=== PATIENT | male | born 1965 | race Caucasian/White ===

== ENCOUNTER 2020-11-04 17:50 | Emergency (ER) | payer BC, MEDICAID ==
[~2020-11-04] VITALS: Ht 193 cm; Wt 108.9 kg
--- NOTE | 2020-11-04 18:24 | NUR ---
The patient bibs for c/o cough/congestion xcouple days and worse at night. In room air. Denies pain. Will continue to monitor the patient.
--- NOTE | 2020-11-04 18:43 | NUR ---
COVID SWAB DONE AND SENT TO THE LAB
[2020-11-04] MEDS ORDERED: AZIT250T PO (19:22)
[2020-11-04] MEDS ORDERED: IBUP-1957 PO (19:22)
--- NOTE | 2020-11-04 19:47 | NUR ---
Patient discharged to home in stable condition. Written and verbal after care instructions given. Patient verbalizes understanding of instruction.
[2020-11-04 20:11] VITALS: BP 134/76
== END 2020-11-04 19:50 | disposition home or self-care (01) ==
LOC: ER 17:57
DX: J20.9 Acute bronchitis, unspecified (principal); Z20.822 Contact with and (suspected) exposure to COVID-19; F17.210 Nicotine dependence, cigarettes, uncomplicated
CPT/HCPCS: 71045; 87426; 99284; C9803

== ENCOUNTER 2021-04-18 23:30 | Inpatient (IN) | payer MEDICAID ==
[~2021-04-18] VITALS: Ht 193 cm; Wt 109.3 kg
[~2021-04-18 23:30] MED LIST: AZIT250T PO; IBUP-1957 PO
--- NOTE | 2021-04-19 | NUR ---
PT BIBS C/O ABDOMINAL PAIN S/P ASCITES & BLOATING. C/O SOB DUE TO THE PRESSURE -N/V/D. ALICE SWELLING NOTED. PT A/OX4/ TOLERATING R/A WELL WITH NO SOB AT 100%. VSS. CONNECTED PT TO POX AND MONITOR.
[2021-04-19] MEDS ORDERED: IOHEXOL-350 100 ML VIAL IV ONE (00:31)
[2021-04-19] MEDS ORDERED: IV NS 0.9% 0 ML IV ONE (00:31)
--- NOTE | 2021-04-19 00:36 | NUR ---
LAC #20G S/L; PATENT AND INTACT. BLOOD AND COVID ANTIGEN SWAB COLLECTED AND SENT TO LAB
[2021-04-19 00:55] LABS: BASOPHILS % (AUTO) 0.5 % (0.0-2.0); EOSINOPHILS % (AUTO) 0.3 % (0.0-6.0); HEMATOCRIT 24 % (39-51); HEMOGLOBIN 7.5 g/dL (13.5-17.5); LYMPHOCYTES # (AUTO) 1.2 K/uL (0.8-4.8); LYMPHOCYTES % (AUTO) 14.9 % (20.0-44.0); MEAN CORPUSCULAR HGB CONC 31 g/dl (31.0-36.0); MEAN CORPUSCULAR VOLUME 62 fL (80-96); MONOCYTES # (AUTO) 0.6 K/uL (0.1-1.30); MONOCYTES % (AUTO) 7.5 % (2.0-12.0); NEUTROPHILS # (AUTO) 6.2 K/uL (1.8-8.9); NEUTROPHILS % (AUTO) 76.8 % (43.0-81.0); PLATELET COUNT (AUTO) 526 K/uL (150-450); RED BLOOD CELL COUNT(AUTO) 3.92 MIL/uL (4.5-6.0); WHITE BLOOD COUNT (AUTO) 8.1 K/uL (4.3-11.0)
--- NOTE | 2021-04-19 01:00 | NUR ---
URINE COLLECTED AND SENT TO LAB
[2021-04-19 01:14] LABS: CALCIUM, SERUM 9.2 mg/dL (8.5-10.1); CARBON DIOXIDE 27 mmol/L (21-32); CHLORIDE 100 mmol/L (98-107); CREATININE 0.9 mg/dL (0.6-1.3); GLUCOSE 89 mg/dL (74-106); POTASSIUM 3.8 mmol/L (3.5-5.1); SODIUM SERUM 135 mmol/L (136-145); UREA NITROGEN, BLOOD 20 mg/dL (7-18)
[2021-04-19 01:26] LABS: ALBUMIN 1.9 g/dL (3.4-5.0); ALKALINE PHOSPHATASE 103 U/L (46-116); ASPARTATE AMINOTRANSFERASE 14 U/L (15-37); BILIRUBIN,DIRECT 0.3 mg/dL (0.0-0.2); BILIRUBIN,TOTAL 0.8 mg/dL (0.2-1.0); LIPASE 77 U/L (73-393); TOTAL PROTEIN, SERUM 6.6 g/dL (6.4-8.2)
--- NOTE | 2021-04-19 01:28 | NUR ---
LACTIC ACID 2.2; FABIAN ESCOBAR NOTIFIED
--- NOTE | 2021-04-19 01:34 | NUR ---
PT DENIED TAKING ANY HOME MEDICATION EXCEPT PRN MOTRIN
[2021-04-19 01:38] LABS: ALANINE AMINOTRANSFERASE 6 U/L (12-78)
[2021-04-19 01:42] LABS: BILIRUBIN,URINE MODERATE (NEGATIVE); COLOR,URINE AMBER (YELLOW); LEUKOCYTE ESTERASE ,URINE NEGATIVE (NEGATIVE); NITRITE, URINE POSITIVE (NEGATIVE); PROTEIN,URINE TRACE mg/dl (NEGATIVE); UGLUCOSE NEGATIVE (NEGATIVE); UROBILINOGEN,URINE 0.2 EU/dL (0.2)
--- NOTE | 2021-04-19 02:06 | NUR ---
LAC #20G S/L INFILTRATED AT CT. INSERTED RFA #18G S/L; PATENT AND INTACT.
--- NOTE | 2021-04-19 02:20 | NUR ---
Terrell dang in [facility] - 04/19/21 at [address] PERALTA ON THE PHONE WITH DEXTER CUETO
--- NOTE | 2021-04-19 04:29 | NUR ---
DR PERALTA ON THE PHONE WITH DR GARCÍA
--- NOTE | 2021-04-19 04:39 | NUR ---
DR PERALTA ON THE PHONE W/ Jodi ACUÑA. GENERAL SURGEON
--- NOTE | 2021-04-19 05:32 | NUR ---
MRSA SWAB COLLECTED AND SENT TO LAB. PATIENT'S BELONGINGS LIST DONE.
[2021-04-19] MEDS ORDERED: ZOLPIDEM TARTRATE 5 MG TABLET PO PRN (06:00)
[2021-04-19] MEDS ORDERED: ACETAMINOPHEN 650 MG/20.3 ML UDC NG PRN (06:00)
[2021-04-19] MEDS ORDERED: IV D5/ 0.9% NACL 1,000 ML IV PRN (06:00)
--- NOTE | 2021-04-19 06:21 | NUR ---
PT WALKED TO RESTROOM, NEEDS MET
--- NOTE | 2021-04-19 06:44 | NUR ---
Terrell dang in ED - 04/19/21 at 0716 by HAIM PT SIGNED CONSENT FOR US GUIDED THORACENTESIS; VERBALIZED UNDERSTANDINGS OF RISKS VS BENEFITS
--- NOTE | 2021-04-19 06:44 | NUR ---
PT SIGNED CONSENT FOR US GUIDED PARACENTESIS; VERBALIZED UNDERSTANDINGS OF RISKS VS BENEFITS
[2021-04-19 07:31] LABS: BASOPHILS % (AUTO) 0.7 % (0.0-2.0); EOSINOPHILS % (AUTO) 0.7 % (0.0-6.0); HEMATOCRIT 22 % (39-51); LYMPHOCYTES # (AUTO) 1.2 K/uL (0.8-4.8); LYMPHOCYTES % (AUTO) 16.5 % (20.0-44.0); MEAN CORPUSCULAR HGB CONC 31 g/dl (31.0-36.0); MEAN CORPUSCULAR VOLUME 63 fL (80-96); MONOCYTES # (AUTO) 0.6 K/uL (0.1-1.30); NEUTROPHILS # (AUTO) 5.4 K/uL (1.8-8.9); NEUTROPHILS % (AUTO) 74.1 % (43.0-81.0); PLATELET COUNT (AUTO) 471 K/uL (150-450); RED BLOOD CELL COUNT(AUTO) 3.56 MIL/uL (4.5-6.0); WHITE BLOOD COUNT (AUTO) 7.2 K/uL (4.3-11.0)
[2021-04-19 07:45] LABS: HEMOGLOBIN 6.9 g/dL (13.5-17.5)
[2021-04-19 08:05] LABS: ALANINE AMINOTRANSFERASE < 6 U/L (12-78); ALBUMIN 1.7 g/dL (3.4-5.0); ALKALINE PHOSPHATASE 90 U/L (46-116); ASPARTATE AMINOTRANSFERASE 14 U/L (15-37); BILIRUBIN,TOTAL 0.6 mg/dL (0.2-1.0); CARBON DIOXIDE 25 mmol/L (21-32); CHLORIDE 101 mmol/L (98-107); CREATININE 0.8 mg/dL (0.6-1.3); GLUCOSE 81 mg/dL (74-106); POTASSIUM 3.8 mmol/L (3.5-5.1); SODIUM SERUM 136 mmol/L (136-145); TOTAL PROTEIN, SERUM 6.1 g/dL (6.4-8.2); UREA NITROGEN, BLOOD 19 mg/dL (7-18)
[2021-04-19] MEDS ORDERED: HYDR-3972 PO (08:24)
[2021-04-19] MEDS ORDERED: IBUP-1957 PO (08:24)
--- NOTE | 2021-04-19 09:41 | NUR ---
ULTRASOUND AT BEDSIDE
--- NOTE | 2021-04-19 10:46 | NUR ---
DR GARCÍA WAS INFORMED PT HEMOGLOBIN IS 6.9, PREVIOUSLY 7.[address] GARCÍA ORDERED 2 UNITS OF BLOOD TO BE GIVEN.
--- NOTE | 2021-04-19 12:41 | NUR ---
CONSENT FOR BLOOD TRANFUSION SIGNED BY PATIENT
[2021-04-19 12:46] LABS: IRON, SERUM 13 ug/dl (50-175); TOTAL IRON BINDING CAPACITY 199 ug/dl (250-450)
[2021-04-19 14:07] LABS: BAND % (MANUAL) 2 % (0.0-5.0); NEUTROPHILS % (MANUAL) 82 (42-76)
[2021-04-19 14:08] LABS: LYMPHOCYTES % (MANUAL) 10 % (16-48); MONOCYTES % (MANUAL) 4 % (0-11.0)
--- NOTE | 2021-04-19 14:50 | NUR ---
AMANUEL (FORMER ROOMATE) [phone].
[2021-04-19 15:16] LABS: BACTERIA,URINE Many /HPF (None Seen); CALCIUM OXALATE CRYSTALS,UR Moderate /HPF (None Seen); SQUAMOUS EPITHELIAL CELL,UR Moderate /HPF (None Seen)
--- NOTE | 2021-04-19 17:01 | NUR ---
ULTRASOUND AT BEDSIDE
[2021-04-19] MEDS: SOD FERRIC GLUC 125 MG in IV NS 0.9% 100 ML IV SCH (17:10)
[2021-04-19] MEDS ORDERED: IV NS 0.9% 250 ML IV ONE (17:43)
[2021-04-19] MEDS ORDERED: IOHEXOL-300 100 ML VIAL IV ONE (17:43)
[2021-04-19] MEDS ORDERED: CT SWABBABLE VALVE TRANS SET 1 EA INFUS.SET MC ONE (17:43)
--- NOTE | 2021-04-19 18:07 | NUR ---
Terrell dang in [facility] - 04/19/21 at 1809 by LISBETH PT TAKEN TO CT
--- NOTE | 2021-04-19 18:45 | NUR ---
BED GIVEN 320-1 AFTER CHANGE OF SHIFT
--- NOTE | 2021-04-19 19:55 | NUR ---
BLOOD TRANSFUSION INITIATED AT 75ML/HR VIA 18G LF. 2 RNs VERIFIED BLOOD PRIOR TO TRANSFUSION. V/S ASSESSED PRIOR TO ADMINSTRATION HR 90 BP 119/72 RR18 ORAL TEMP 97.5.
--- NOTE | 2021-04-19 20:10 | NUR ---
PT TOLERATING BLOOD TRANSFUSION WELL. ALL V/S REASSESSED AND WITHIN NORMAL LIMITS. PT DENIES ANY COMPLAINTAS. TRANSFUSION RATE INCREASED TO 100ML/HR VIA 18G LF.
--- NOTE | 2021-04-19 20:32 | NUR ---
REPORT GIVEN TO NARESH
--- NOTE | 2021-04-19 20:40 | NUR ---
PT TOLERATING TRANSFUSION WELL INFUSING AT 100ML/HR. ALL V/S STABLE. PT DENIES ANY COMPLAINTS AT THIS TIME.
[2021-04-19 21:00] VITALS: BP 121/81
--- NOTE | 2021-04-19 21:06 | NUR ---
PT TRANSPORTED TO ROOM 320 ON [employer] WITHOUT INCIDENT WITH BLOOD TRANSFUSION INFUSING AT 100ML/ HR VIA 18G LF AND D5NS AT 75ML/HR VIA 20G LAC. ALL BELONGINGS TRANSPORTED WITH PATIENT.
--- NOTE | 2021-04-19 21:25 | NUR ---
MS MITZY NOTES PT ARRIVED FROM ER ACCOMPANIED BY RN AND EMT NOTED PT RUNNING BLOOD TRANSFUSION @ 100ML/HR , AND D5 NS @ 75ML/HR TOLERATING WELL. VITAL SIGNS STABLE. PT ABLE TO WALK TO BED WITH ASSISTANCE NOTED WITH STEADY GAIT. IV ACCESS ON THE L FOREARM 18G AND L AC 20G BOTH INTACT RUINING WELL. PT REFUSING SKIN ASSESSMENT DOES NOT WANT OT REMOVE CLOTHES AT THIS TIME RISK AND BENEFITS EXPLAINEDX3 REFUSED X3. PT STATED " I WANT TO KEEP MY CLOTHES ON " PT S/P PARACENTESIS WITH 7L OUTPUT TODAY IN THE ER. PT ON 2L OF OXYGEN TOLERATING WELL. PT COLD WARM BLANKETS PROVIDED. CALL LIGHT PLACED WITHIN REACH. TABLE WITHIN REACH. WILL CONTINUE TO MONITOR. Addendum: 04/20/21 at 0311 by NARESH WAYNE RN PT NOT ON 02 ON ROOM AIR TOLERATING WELL.
--- NOTE | 2021-04-19 22:17 | NUR ---
MS RN NOTES BLOOD TRANSFUSION FINISHED AT THIS TIME. PT VITALS 110/65 HR HR 85 RR 18 TEMPERATURE 98.0 OZ SAT 95 %. WILL CONTINUE TO MONITOR.
--- NOTE | 2021-04-19 22:42 | NUR ---
MS RN NOTES ATTEMPTED TO RETRIEVE SECOND UNIT OF BLOOD FROM LAB UNABLE TO THERE IS NO ONE WHO CAN ISSUE IT WILL HAVE TO WAIT UNTIL MORNING .
--- NOTE | 2021-04-19 23:00 | NUR ---
MS RN NOTES GOT A CALL FROM LAB THAT THEY HAVE SOMEONE THAT COULD GIVE ME THE BLOOD PICKED UP THE BLOOD. WILL CONTINUE TO MONITOR.
[2021-04-19 23:22] VITALS: BP 115/65
[2021-04-19 23:39] VITALS: BP 127/68
[2021-04-20 00:09] VITALS: BP 121/75
[2021-04-20 00:39] VITALS: BP 115/65
--- NOTE | 2021-04-20 01:45 | NUR ---
MS RN NOTES BLOOD TRANSFUSION FINISHED LAS SET OF VITALS ARE FOLLOW: 110/ 65 , HR 85, 98% O2 SAT NO FEVER, NO SIGNS AND SYMPTOMS OF REACTION TO TRANSFUSION. WILL CONTINUE TO MONITOR.
[2021-04-20] MEDS: HYDROCODONE/APAP 5/325MG TABLET PO PRN (02:26)
--- NOTE | 2021-04-20 02:28 | NUR ---
MS RN NOTES PRN NORCO GIVEN TOLERATED WELL. WILL CONTINUE TO MONITOR.
[2021-04-20] MEDS ORDERED: MAG HYDROX/AL HYDROX/SIMETH 30 ML UDC PO ONE (03:30)
--- NOTE | 2021-04-20 06:34 | NUR ---
MS RN NOTES PT A/O X4 ON ROOM AIR TOLERATING WELL. NO PAIN OR DISCOMFORT AT THIS TIME. IV ACCESS ON THE L FOREARM 18G AND LAC 20G BOTH INTACT RUNNING D5 NS @ 75 ML/HR. PT REFUSING SKIN ASSESSMENT DOES NOT WANT TO REMOVE CLOTHES AT THIS TIME RISK AND BENEFITS EXPLAINEDX3 REFUSED X3. PT STATED " I WANT TO KEEP MY CLOTHES ON " PT S/P PARACENTESIS WITH 7L OUTPUT YESTERDAY CONSENT FOR CT W CONTRAST OBTAINED AND PLACED IN THE CHART. ALL NEEDS ATTENDED TO THROUGHOUT THE SHIFT CALL LIGHT PLACED WITHIN REACH. TABLE WITHIN REACH. WILL CONTINUE TO MONITOR.
[2021-04-20 07:01] LABS: CREATININE 0.7 mg/dL (0.6-1.3); POTASSIUM 3.4 mmol/L (3.5-5.1)
--- NOTE | 2021-04-20 07:44 | NUR ---
MS RN OPENING NOTES RECEIVED Pt RESTING IN BED. Pt IS A/O x4. Pt IS ON ROOM AIR AND TOLERATING WELL AT THIS TIME. NO COMPLAINTS OF PAIN OR SIGNS OF DISTRESS NOTICED. IV ACCESS ON L AC AND L FA AND BOTH ARE PATENT AND INTACT. SAFETY MEASURES ARE IN PLACE: BED IS LOCKED AND IN LOWEST POSITION. SIDE RAILS UPx2. BED SIDE TABLE AND CALL LIGHT ARE WITHIN REACH. WILL CONTINUE TO MONITOR THROUGHOUT THE SHIFT.
[2021-04-20 07:49] LABS: BASOPHILS % (AUTO) 0.5 % (0.0-2.0); EOSINOPHILS % (AUTO) 0.7 % (0.0-6.0); HEMATOCRIT 26 % (39-51); HEMOGLOBIN 8.2 g/dL (13.5-17.5); LYMPHOCYTES # (AUTO) 1.2 K/uL (0.8-4.8); LYMPHOCYTES % (AUTO) 16.6 % (20.0-44.0); MEAN CORPUSCULAR HGB CONC 31 g/dl (31.0-36.0); MEAN CORPUSCULAR VOLUME 65 fL (80-96); MONOCYTES # (AUTO) 0.6 K/uL (0.1-1.30); MONOCYTES % (AUTO) 7.7 % (2.0-12.0); NEUTROPHILS # (AUTO) 5.4 K/uL (1.8-8.9); NEUTROPHILS % (AUTO) 74.5 % (43.0-81.0); PLATELET COUNT (AUTO) 489 K/uL (150-450); RED BLOOD CELL COUNT(AUTO) 4.03 MIL/uL (4.5-6.0); WHITE BLOOD COUNT (AUTO) 7.3 K/uL (4.3-11.0)
[2021-04-20 08:06] LABS: IMMUNOGLOBULIN A, SERUM 441 mg/dL (90-386); IMMUNOGLOBULIN G, SERUM 1315 mg/dL (603-1613); IMMUNOGLOBULIN M, SERUM 71 mg/dL (20-172)
[2021-04-20] MEDS ORDERED: POTASSIUM CHLORIDE 20 MEQ TAB.PRT.SR PO SCH (09:30)
[2021-04-20 11:07] LABS: *SPE A/G RATIO 0.5 (0.7-1.7); *SPE ALPHA-1-GLOBULIN 0.5 g/dL (0.0-0.4); *SPE M-SPIKE Not Observed g/dL (Not Observed)
[2021-04-20] MEDS ORDERED: POTASSIUM CHLORIDE 20 MEQ TAB.PRT.SR PO ONE (11:30)
[2021-04-20] MEDS ORDERED: LEVO500T90 PO (11:46)
[2021-04-20] MEDS ORDERED: FERR325T23 PO (11:46)
[2021-04-20] MEDS: LEVOFLOXACIN (250MG) 250 MG TABLET PO SCH (11:55)
--- NOTE | 2021-04-20 11:56 | NUR ---
MS RN NOTES BLOOD TRANSFUSION STARTED ON Pt. Pt TOLERATING WELL AT THIS TIME. WILL CONTINUE TO MONITOR.
[2021-04-20 12:57] VITALS: BP 114/60
[2021-04-20] MEDS ORDERED: IOHEXOL-300 100 ML VIAL IV ONE (14:04)
[2021-04-20] MEDS ORDERED: IV NS 0.9% 250 ML IV ONE (14:04)
[2021-04-20] MEDS ORDERED: CT SWABBABLE VALVE TRANS SET 1 EA INFUS.SET MC ONE (14:04)
[2021-04-20] MEDS: SOD FERRIC GLUC 125 MG in IV NS 0.9% 100 ML IV SCH (15:23)
[2021-04-20] MEDS: ONDANSETRON HCL/PF 4 MG/2 ML VIAL IV PRN ×2 (16:51→21:48)
[2021-04-20 17:47] VITALS: BP 116/59
--- NOTE | 2021-04-20 18:36 | NUR ---
MS RN CLOSING NOTES Pt IS LYING IN BED AWAKE, HE IS A/O X4 ON ROOM AIR TOLERATING WELL. NO PAIN OR DISCOMFORT AT THIS TIME. IV ACCESS ON THE L FOREARM 18G AND L AC 20G BOTH INTACT AND PATENT AT THIS TIME. ALL NEEDS MET. SAFETY MEASURES ARE IN PLACE: BED IS LOCKED AND IN LOWEST POSITION. SIDE RAILS UPx2. CALL LIGHT AND BED SIDE TABLE ARE WITHIN Pt's REACH. WILL ENDORSE TO ONCOMING SHIFT
--- NOTE | 2021-04-20 19:23 | NUR ---
MS RN NOTES Pt NO LONGER DISCHARGED DUE TO MRI SCHEDULED.
[2021-04-20 20:00] VITALS: BP 114/72
[2021-04-20] MEDS: MORPHINE SULFATE INJ 2 MG/ML DISP.SYRIN IV PRN (21:48)
[2021-04-21] MEDS: ONDANSETRON HCL/PF 4 MG/2 ML VIAL IV PRN ×2 (02:20→23:48)
[2021-04-21] MEDS: MORPHINE SULFATE INJ 2 MG/ML DISP.SYRIN IV PRN ×4 (02:20→23:46)
--- NOTE | 2021-04-21 06:34 | NUR ---
MS RN NOTES AWAKE & RESPONSIVE. NOT IN ANY DISTRESS. NO SOB NOTED. DENIES ANY PAIN OR DISCOMFORT AT THIS TIME. WITH IV-HL PATENT & INTACT. MONITORED ACCORDINGLY. CALL LIGHT WITHIN REACH. BED IN LOWEST POSITION. SR UP X 2 FOR SAFETY. WILL ENDORSE TO NEXT SHIFT.
[2021-04-21 07:09] LABS: CALCIUM, SERUM 7.1 mg/dL (8.5-10.1); CREATININE 0.7 mg/dL (0.6-1.3); POTASSIUM 3.8 mmol/L (3.5-5.1)
[2021-04-21] MEDS: LEVOFLOXACIN (250MG) 250 MG TABLET PO SCH (12:43)
[2021-04-21] MEDS: HYDROCODONE/APAP 5/325MG TABLET PO PRN (13:39)
[2021-04-21] MEDS: SOD FERRIC GLUC 125 MG in IV NS 0.9% 100 ML IV SCH (14:37)
--- NOTE | 2021-04-21 19:07 | NUR ---
MS RN NOTES Pt HAS BEEN DISCHARGED. HE IS A/Ox4 Pt IS ON ROOM AIR AND TOLERATING WELL AT THIS TIME. NO COMPLAINTS OF PAIN OR SIGNS OF DISTRESS. IV ACCESS HAVE BEEN REMOVED. Pt LEFT VIA AMBULANCE.
[2021-04-21 20:00] VITALS: BP 107/63
[2021-04-21] MEDS: MUPIROCIN OINT 2% 22 GM TUBE NS SCH (20:45)
--- NOTE | 2021-04-22 04:28 | NUR ---
CLOSING NOTES: PATIENT WAS DISCHARGED TO [facility] HERE @ 1900 STATED PATIENT "TOO BIG" FOR THEIR GUERNY, THAT WE NEED TO CALL FOR TRANSPORT AGAIN AND ASK FOR THE LARGER TRANSPORTING. THIS WAS DONE BY THE CHARGE NURSE ARIANA [facility]STER [facility] [employer] ARRANGMENT ARE MADE FOR 04/22 AT 12:30 IV RESTRTED 22 G RT HAND D/T HE STATED HE NEED HIS MORPHINE BECAUSE HE COULD NOT GET THRU THE NIGHT W/O IT. ZOFRAN GIVEN 1 X FOR NAUES AND EFFECTIVE HE IS ALERT AND ORIENTATED X3 AMBULANTES INDEPENDENTLY STEADY ON HIS LEGS
[2021-04-22] MEDS: MORPHINE SULFATE INJ 2 MG/ML DISP.SYRIN IV PRN ×2 (08:04→15:51)
--- NOTE | 2021-04-22 08:17 | NUR ---
MS RN OPENING NOTE Patient in bed, awake. A/O x 4, able to make needs known. On room air, breathing evenly and unlabored. No SOB or s/s of distress noted. IV access on Right hand #22G, intact and patent. Patient complained of pain on his abdomen 8/10, PRN Morphine given. Safety precautions in place: bed in low, locked position; siderails up x 2; call light within reach. Will continue to monitor.
[2021-04-22 08:31] VITALS: BP 108/70
[2021-04-22] MEDS: MUPIROCIN OINT 2% 22 GM TUBE NS SCH (09:36)
--- NOTE | 2021-04-22 10:55 | NUR ---
RN NOTE Patient refused to be picked up by ambulance to go to facility. Diego, charge nurse, aware.
[2021-04-22] MEDS: HYDROCODONE/APAP 5/325MG TABLET PO PRN ×2 (10:59→19:55)
[2021-04-22] MEDS: LEVOFLOXACIN (250MG) 250 MG TABLET PO SCH (12:50)
[2021-04-22] MEDS: SOD FERRIC GLUC 125 MG in IV NS 0.9% 100 ML IV SCH (14:53)
[2021-04-22 16:03] VITALS: BP 98/59
--- NOTE | 2021-04-22 19:10 | NUR ---
MS RN CLOSING NOTE Patient in bed, awake. A/O x 4, able to make needs known. Stable on room air, breathing evenly and unlabored. No SOB or s/s of distress noted. IV access on Right hand #22G, intact and patent. Pain meds given when needed. Due meds given. all needs attended to. Safety precautions in place: bed in low, locked position; siderails up x 2; call light within reach. Will endorse to foot and ankle surgeon nurse for [facility].
--- NOTE | 2021-04-22 19:45 | NUR ---
MS RN OPENING AND DISCHARGE NOTE: RECEIVED REPORT AT PATIENT'S BEDSIDE. PATIENT IS A&OX4, IN NAD AND VSS, SITTING UP AT EOB. COMMUNICATIVE AND VERBALIZING NEEDS EFFECTIVELY. SHORTLY AFTER RECEIVING REPORT, EMS ARRIVED TO FRONT END APPLICATION DEVELOPER PATIENT FOR TRANSPORT TO [facility]. PATIENT GIVEN NORCO 5/325MG PER MD PRN ORDER FOR C/O ABDOMINAL PAIN. REINFORCED TEACHING R/T DISCHARGE INSTRUCTION. PATIENT VERBALIZES UNDERSTANDING. DISCHARGE AND INVENTORY PAPERS SIGNED AND COPY SENT WITH PATIENT. IV D/C'D WITH CATHETER TIP INTACT. NO S/SX OF ERYTHEMA/INFECTION TO OR SURROUNDING INSERTION SITE. PATIENT AMBULATED TO [facility] WITHOUT COMPLICATION/STABLE GAIT. SAFETY PRECAUTIONS MAINTAINED. REPORTED OFF TO EMS. @2049 REPORT [facility]
== END 2021-04-22 20:00 | DRG 381 ==
LOC: ER 23:42 → TRANSITION 04-19 04:44 → MED 04-19 20:16
PROVIDERS: ADMIT Internal Medicine; ATTEND Internal Medicine
PROC: 0W9G3ZZ Drainage of Peritoneal Cavity, Percutaneous Approach (ICD-10-PCS; principal; 2021-04-19)
PROC: 30233N1 Transfusion of Nonautologous Red Blood Cells into Peripheral Vein, Percutaneous Approach (ICD-10-PCS; 2021-04-19)
DX: C43.9 Malignant melanoma of skin, unspecified (principal); K55.029 Acute infarction of small intestine, extent unspecified; R18.0 Malignant ascites; C78.02 Secondary malignant neoplasm of left lung; C78.5 Secondary malignant neoplasm of large intestine and rectum; E87.2 Acidosis; E88.09 Other disorders of plasma-protein metabolism, not elsewhere classified; D50.9 Iron deficiency anemia, unspecified; F17.200 Nicotine dependence, unspecified, uncomplicated; K40.20 Bilateral inguinal hernia, without obstruction or gangrene, not specified as recurrent; E27.9 Disorder of adrenal gland, unspecified; K80.20 Calculus of gallbladder without cholecystitis without obstruction; Z20.822 Contact with and (suspected) exposure to COVID-19; Z98.890 Other specified postprocedural states; H53.40 Unspecified visual field defects; N50.89 Other specified disorders of the male genital organs; Z87.19 Personal history of other diseases of the digestive system; J98.11 Atelectasis; K76.9 Liver disease, unspecified; N28.9 Disorder of kidney and ureter, unspecified; Z85.72 Personal history of non-Hodgkin lymphomas; D32.0 Benign neoplasm of cerebral meninges
CPT/HCPCS: 36415; 70470-TC; 70542-TC; 71045-TC; 76942-TC; 80048-TC; 80053-TC; 80076-TC; 81001; 82728-TC; 82784; 83540-TC; 83605-TC; 83690-TC; 84155; 84165; 84439-TC; 84443-TC; 84484-TC; 85025-TC; 85730-TC; 86334; 86850-TC; 87040-TC; 87070-TC; 87081-TC; 87086-TC; 89051-TC; 93970-TC; C9803; G0378; J2270; J2405; J2916; J3490; J7030; J7042; J7050; J7070; P9016; Q9967

== ENCOUNTER 2021-04-26 16:43 | Inpatient (IN) | payer MEDICAID ==
[~2021-04-26] VITALS: Ht 193 cm; Wt 110.2 kg
[~2021-04-26 16:43] MED LIST changes: -AZIT250T PO; +FERR325T23 PO; +HYDR-3972 PO; +LEVO500T90 PO
--- NOTE | 2021-04-26 17:01 | NUR ---
PT SELF PRESENTS TO ER, AMBULATORY TO ED BED 13 C/O ABDOMINAL DISTENSION FOR THE PAST 3 DAYS. PT STATES HE LAST HAD PARACENTESIS LAST SATURDAY. GOWNED AND PLACED ON MONITOR. VSS AWAITING MD CERRATO.
--- NOTE | 2021-04-26 17:13 | NUR ---
DR MEJIA AT BEDSIDE FOR EVAL.
--- NOTE | 2021-04-26 17:38 | NUR ---
MOVE SHEET SUBMITTED
--- NOTE | 2021-04-26 17:44 | NUR ---
IV LINE STARTED BLOOD DRAWN AND SENT TO LAB.
[2021-04-26 18:10] LABS: BASOPHILS % (AUTO) 0.2 % (0.0-2.0); EOSINOPHILS % (AUTO) 0.7 % (0.0-6.0); HEMATOCRIT 26 % (39-51); HEMOGLOBIN 8.2 g/dL (13.5-17.5); MEAN CORPUSCULAR HGB CONC 31 g/dl (31.0-36.0); MEAN CORPUSCULAR VOLUME 65 fL (80-96); MONOCYTES # (AUTO) 0.6 K/uL (0.1-1.30); MONOCYTES % (AUTO) 8.9 % (2.0-12.0); NEUTROPHILS # (AUTO) 5.5 K/uL (1.8-8.9); NEUTROPHILS % (AUTO) 76.2 % (43.0-81.0); PLATELET COUNT (AUTO) 560 K/uL (150-450); RED BLOOD CELL COUNT(AUTO) 4.05 MIL/uL (4.5-6.0); WHITE BLOOD COUNT (AUTO) 7.2 K/uL (4.3-11.0)
[2021-04-26 18:43] LABS: BILIRUBIN,DIRECT 0.2 mg/dL (0.0-0.2); BILIRUBIN,TOTAL 0.3 mg/dL (0.2-1.0); CALCIUM, SERUM 8.1 mg/dL (8.5-10.1); CREATININE 1.6 mg/dL (0.6-1.3); POTASSIUM 4.3 mmol/L (3.5-5.1); TOTAL PROTEIN, SERUM 5.4 g/dL (6.4-8.2)
[2021-04-26 18:46] LABS: ALBUMIN 1.4 g/dL (3.4-5.0)
[2021-04-26] MEDS ORDERED: BISA10SU11 RC (18:49)
[2021-04-26] MEDS ORDERED: FURO-145 PO (18:49)
[2021-04-26] MEDS ORDERED: FERR325T23 PO (18:49)
[2021-04-26] MEDS ORDERED: NA P133E RC (18:49)
[2021-04-26] MEDS ORDERED: MAGN400O6 PO (18:49)
[2021-04-26] MEDS ORDERED: PANT40TA2 PO (18:49)
--- NOTE | 2021-04-26 21:09 | NUR ---
CALL FROM ROSA M RENTERIA CM. PLANNING FOR TRANSFER TO [facility].
--- NOTE | 2021-04-27 | NUR ---
PATIENT RESTING IN BED WATCHING TV. PATIENT VSS AT THIS TIME. NO ACUTE DISTRESS NOTED. PATIENT CONNECTED TO CARDIAC AND POX MONITORS. PT LFA 20G IV INTACT FLUSHING WELL. SITTER AT BEDSIDE. WILL CONTINUE TO MONITOR.
--- NOTE | 2021-04-27 10:37 | NUR ---
CALL BACK FROM COLIN BECKER,SHE WILL F/U ON TX
--- NOTE | 2021-04-27 15:48 | NUR ---
CALLED [phone] СВЕТЛАНА RENTERIA CM. LEFT A VOICEMAIL, WAITING FOR CALLBACK.
--- NOTE | 2021-04-27 15:53 | NUR ---
SPOKE TO СВЕТЛАНА. (DEXTER SHAW) SHE IS CURRENTLY WAITING FOR A BED AT [facility]. SHE IS ALSO TRYING [facility]. WAITING FOR A CALL BACK FOR STATUS UPDATE.
--- NOTE | 2021-04-28 07:42 | NUR ---
CALLED [facility] [phone] WILL CALL US ABOUT [place]
--- NOTE | 2021-04-28 08:02 | NUR ---
GOT AUTH [id number] IF WOULD LIKE TO ADMIT, STILL LOOKING FOR BED AT [facility].
--- NOTE | 2021-04-28 08:06 | NUR ---
DR. GARCÍA SPEAKING WITH DR. MARTINEZ
--- NOTE | 2021-04-28 08:14 | NUR ---
CALLED FOR BED.
--- NOTE | 2021-04-28 08:56 | NUR ---
BED GIVEN 314-1
--- NOTE | 2021-04-28 09:08 | NUR ---
REPORT GIVEN TO RAFA RN, ROOM 314-1
--- NOTE | 2021-04-28 09:22 | NUR ---
ULTRASOUND GUIDED PARACENTESIS ONGOING AT BEDSIDE
--- NOTE | 2021-04-28 10:01 | NUR ---
PARACENTESIS OUTPUT 6LITERS, TOLERATED WELL
--- NOTE | 2021-04-28 10:20 | NUR ---
MS PRODUCT ARCHITECT NOTES RECEIVED PATIENT FROM ER STATUS POST PARACENTESIS VIA STRETCHER. PATIENT IS AWAKE AND A/O X4. ON ROOM AIR TOLERATING WELL. NO SOB NOTED. NOT IN DISTRESS. WITH IV ACCESS AT LEFT HAND G20 AND AT LEFT AC G20 SALINE LOCKED, PATENT AND INTACT. MADE COMFORTABLE ON BWED. WITH NO COMPLAINTS OF PAIN OR DISCOMFORT AT THIS TIME. PATIENT REFUSED FOR SKIN ASSESSMENT. SAFETY MEASURES IN PLACED. CALL LIGHT WITHIN REACH. BED ON LOWEST LOCKED POSITION, SIDE RAILS UP X2. WILL CONTINUE TO MONITOR.
[2021-04-28 11:34] VITALS: BP 104/62
[2021-04-28] MEDS ORDERED: HYDROCODONE/APAP 5/325MG TABLET PO PRN (13:00)
[2021-04-28] MEDS ORDERED: IBUPROFEN 400 MG TABLET PO PRN (13:00)
[2021-04-28] MEDS ORDERED: BISACODYL SUPP (10 MG) 10 MG/SUPP.RECT SUPP.RECT RC PRN (13:00)
[2021-04-28] MEDS ORDERED: MAGNESIUM HYDROXIDE 30 ML UDC PO PRN (13:00)
[2021-04-28] MEDS ORDERED: NA PHOS,M-B/NA PHOS,DI-BA 1 EA ENEMA RC PRN (13:00)
--- NOTE | 2021-04-28 14:20 | NUR ---
MS QUAL RESEARCH MANAGER NOTES PATIENT WAS SEEN BY DR. GARCÍA AND ORDERED PATIENT FOR DISCHARGE TO HIS PREVIOUS SNF PER PATIENT'S REQUEST. PATIENT HAS AN APPOINTMENT FOR ONCO CHECK-UP SCHEDULED AT 1430. DISCHARGE INSTRUCTION AND EDUCATION PROVIDED TO PATIENT AND EXPLAINED MEDICATIONS AND PRESCRIPTIONS. PATIENT VERBALIZED UNDERSTANDING. DISCHARGE FORM AND BELONGINGS LIST FORM SIGNED BY PATIENT. ALL BELONGINGS ACCOUNTED FOR. NAME WRIST BAND AND IV LINE REMOVED. ACCOMPANIED PATIENT TO THE LOBBY VIA WHEELCHAIR AND LEFT IN STABLE CONDITION VIA UBER. MD AND CHARGE NURSE ARE AWARE OF THE DISCHARGE.
[2021-04-28] MEDS ORDERED: FERROUS SULFATE (325 MG) 325 MG/TAB TABLET PO SCH (17:00)
[2021-04-29] MEDS ORDERED: PANTOPRAZOLE 40 MG TABLET.DR PO SCH (07:30)
== END 2021-04-28 15:44 | DRG 381 ==
LOC: ER 16:45 → UNDOADMIN 04-27 19:40 → TRANSITION 04-27 19:40 → MED 04-28 09:01
PROVIDERS: ADMIT Internal Medicine; ATTEND Internal Medicine
PROC: 0W9G3ZZ Drainage of Peritoneal Cavity, Percutaneous Approach (ICD-10-PCS; principal; 2021-04-28)
DX: C43.59 Malignant melanoma of other part of trunk (principal); R18.0 Malignant ascites; C79.9 Secondary malignant neoplasm of unspecified site; E88.09 Other disorders of plasma-protein metabolism, not elsewhere classified; I10 Essential (primary) hypertension; D50.9 Iron deficiency anemia, unspecified; H53.8 Other visual disturbances; G93.9 Disorder of brain, unspecified; Z87.891 Personal history of nicotine dependence; Z20.822 Contact with and (suspected) exposure to COVID-19
CPT/HCPCS: 36415; 76942-TC; 80048-TC; 80076-TC; 85025-TC; 85730-TC; 87081-TC; C9803; G0378